=== PATIENT | male | born 1950 | race Caucasian/White ===

== ENCOUNTER 2022-08-11 11:24 | Day surgery (SDC) | payer OTHER ==
[2022-08-08 11:28] VITALS: BMI 38.4
[2022-08-11 11:53] VITALS: RESP 20
[2022-08-11 12:33] VITALS: TEMP 98
[2022-08-11 12:52] VITALS: BP 121/65; PULSE 85
== END 2022-08-11 13:21 | disposition home or self-care (01) ==
LOC: FASU-ENDO 11:24
PROVIDERS: ATTEND Internal Medicine Gastroenterology
PROC: 0DBH8ZX Excision of Cecum, Via Natural or Artificial Opening Endoscopic, Diagnostic (ICD-10-PCS; principal; 2022-08-11 12:05)
DX: Z12.11 Encounter for screening for malignant neoplasm of colon (principal); D12.0 Benign neoplasm of cecum; K57.30 Diverticulosis of large intestine without perforation or abscess without bleeding
CPT/HCPCS: 82962; 88305-TC

== ENCOUNTER 2024-03-28 03:50 | Emergency (ER) | payer OTHER ==
[2024-03-28 04:00] VITALS: BMI 38.0
[2024-03-28] MEDS: SODIUM CHLORIDE 0.9% 500 ML INFUS.BAG IV ONE (05:36)
[2024-03-28] MEDS ORDERED: DIPHTH,PERTUSS(ACELL),TET 0.5 ML DISP.SYRIN IM ONE (05:42)
[2024-03-28] MEDS ORDERED: BACITRACIN ZINC 15 GM TUBE TOPICAL OINTMENT ONE (05:44)
[2024-03-28] MEDS: BACITRACIN ZINC 15 GM TUBE TOPICAL OINTMENT TP ONE (05:48)
[2024-03-28 05:49] LABS: INR 1.38 (0.83-1.09); PROTHROMBIN TIME (PATIENT) 15.7 SEC (9.7-13.0)
[2024-03-28] MEDS: DIPHTH,PERTUSS(ACELL),TET 0.5 ML DISP.SYRIN IM ONE (05:49)
[2024-03-28 05:52] LABS: ACTIVATED PTT 34.1 SECONDS (25.2-36.5)
[2024-03-28 06:01] LABS: POTASSIUM 5.1 mmol/L (3.5-5.1)
[2024-03-28 06:02] LABS: ALBUMIN 3.2 g/dl (3.4-5.0); CALCIUM 8.5 mg/dL (8.5-10.1)
[2024-03-28 06:03] LABS: BLOOD UREA NITROGEN 80.5 mg/dL (7-18)
[2024-03-28 06:06] LABS: CREATININE 2.5 mg/dL (0.55-1.3)
[2024-03-28 06:07] LABS: BILIRUBIN,TOTAL 0.6 mg/dL (0.2-1); TOT PROT 6.4 g/dl (6.4-8.2)
[2024-03-28 07:23] LABS: BASO % 0.6 % (0-2.0); EOS % 2.3 % (0-4.5); HEMATOCRIT 34.2 % (35.4-49); HEMOGLOBIN 11.2 GM/dL (11.7-16.9); LYMPH % 9.1 % (8-40); MCH 28.1 pg (25.7-33.7); MCHC 32.7 g/dl (32.0-35.9); MEAN CELL VOLUME 85.9 fl (80-96); MEAN PLT VOLUME 8.3 fl (7.5-11.1); MONO % 4.1 % (3.8-10.2); NEUT % 83.9 % (42.8-82.8); PLATELET COUNT 255 10^3/uL (134-434); RBC 3.98 M/mm3 (4.00-5.60); RDW 17.4 % (11.9-15.9); WHITE BLOOD COUNT 12.3 K/mm3 (4.0-10.0)
[2024-03-28 07:34] VITALS: PULSE 82; RESP 20
[2024-03-28 08:05] VITALS: BP 108/69; TEMP 97.4
== END 2024-03-28 08:17 | disposition home or self-care (01) ==
LOC: JER 03:50
PROC: 3E0234Z Introduction of Serum, Toxoid and Vaccine into Muscle, Percutaneous Approach (ICD-10-PCS; principal; 2024-03-28)
DX: S91.011A Laceration without foreign body, right ankle, initial encounter (principal); W26.0XXA Contact with knife, initial encounter; Z23 Encounter for immunization
CPT/HCPCS: 36415; 80053; 85025; 85610; 85730; 86850; 86900; 86901; 90471; 90715; 93005; 93010; 99284-25

== ENCOUNTER 2024-03-29 17:29 | Observation (INO) | payer OTHER ==
[2024-03-29] MEDS ORDERED: MAGNESIUM SULFATE IN WATER 2 GM/50 ML IVPB IVPB ONE (18:02)
[2024-03-29] MEDS: MAGNESIUM SULFATE IN WATER 2 GM/50 ML IVPB IVPB ONE (18:20)
[2024-03-29] MEDS: SODIUM CHLORIDE 0.9% 500 ML INFUS.BAG IV ONE ×2 (18:20→23:04)
[2024-03-29 18:34] LABS: BASO % 1.2 % (0-2.0); EOS % 1.8 % (0-4.5); HEMATOCRIT 30.8 % (35.4-49); HEMOGLOBIN 9.8 GM/dL (11.7-16.9); LYMPH % 12.3 % (8-40); MCH 27.8 pg (25.7-33.7); MCHC 31.9 g/dl (32.0-35.9); MEAN PLT VOLUME 7.8 fl (7.5-11.1); MONO % 7.8 % (3.8-10.2); NEUT % 76.9 % (42.8-82.8); PLATELET COUNT 210 10^3/uL (134-434); RBC 3.54 M/mm3 (4.00-5.60); RDW 17.3 % (11.9-15.9); WHITE BLOOD COUNT 11.4 K/mm3 (4.0-10.0)
[2024-03-29 18:41] LABS: INR 1.28 (0.83-1.09); PROTHROMBIN TIME (PATIENT) 14.6 SEC (9.7-13.0)
[2024-03-29 19:45] LABS: POTASSIUM 4.7 mmol/L (3.5-5.1)
[2024-03-29 19:48] LABS: ALBUMIN 3.5 g/dl (3.4-5.0); BLOOD UREA NITROGEN 64.5 mg/dL (7-18); CALCIUM 8.7 mg/dL (8.5-10.1)
[2024-03-29 19:51] LABS: CREATININE 1.9 mg/dL (0.55-1.3)
[2024-03-29 19:53] LABS: BILIRUBIN,TOTAL 0.6 mg/dL (0.2-1); TOT PROT 6.6 g/dl (6.4-8.2)
[2024-03-29 19:56] LABS: N-TERMINAL BNP 5937.8 pg/ml (5-125)
[2024-03-29 20:17] LABS: PH,URINE 5.5 (5.0-8.0); URINE APPEARANCE CLEAR; URINE BILIRUBIN NEGATIVE (NEGATIVE); URINE COLOR YELLOW; URINE GLUCOSE (UA) TRACE (NEGATIVE); URINE KETONE NEGATIVE (NEGATIVE); URINE LEUK ESTERASE NEGATIVE (NEGATIVE); URINE NITRITE NEGATIVE (NEGATIVE); URINE PROTEIN NEGATIVE (NEGATIVE); URINE UROBILINOGEN 0.2 mg/dL (0.2-1.0)
[2024-03-29 21:34] LABS: BASO % 1.2 % (0-2.0); EOS % 2.4 % (0-4.5); HEMATOCRIT 29.1 % (35.4-49); HEMOGLOBIN 9.6 GM/dL (11.7-16.9); LYMPH % 13.3 % (8-40); MCH 28.7 pg (25.7-33.7); MCHC 33.1 g/dl (32.0-35.9); MEAN CELL VOLUME 86.5 fl (80-96); MONO % 6.9 % (3.8-10.2); NEUT % 76.2 % (42.8-82.8); PLATELET COUNT 207 10^3/uL (134-434); RBC 3.36 M/mm3 (4.00-5.60); RDW 17.6 % (11.9-15.9); WHITE BLOOD COUNT 9.8 K/mm3 (4.0-10.0)
[2024-03-29 21:54] LABS: HIV INTERPRETATION NEGATIVE (NEGATIVE)
[2024-03-30 01:59] VITALS: BMI 40.1
[2024-03-30] MEDS: LEVOTHYROXINE NA 50 MCG TABLET (FP) PO SCH (06:12)
[2024-03-30] MEDS: INSULIN ASPART SLIDING SCALE (NOVOLOG) 1 VIAL SQ SCH (06:16)
[2024-03-30 07:47] LABS: BASO % 1.4 % (0-2.0); EOS % 3.4 % (0-4.5); HEMATOCRIT 28.8 % (35.4-49); HEMOGLOBIN 9.4 GM/dL (11.7-16.9); MCH 28.4 pg (25.7-33.7); MCHC 32.7 g/dl (32.0-35.9); MEAN CELL VOLUME 86.9 fl (80-96); MEAN PLT VOLUME 7.9 fl (7.5-11.1); MONO % 10.1 % (3.8-10.2); NEUT % 65.1 % (42.8-82.8); PLATELET COUNT 196 10^3/uL (134-434); RBC 3.31 M/mm3 (4.00-5.60); RDW 17.1 % (11.9-15.9); WHITE BLOOD COUNT 8.6 K/mm3 (4.0-10.0)
[2024-03-30 07:51] LABS: INR 1.19 (0.83-1.09); PROTHROMBIN TIME (PATIENT) 13.6 SEC (9.7-13.0)
[2024-03-30 08:08] LABS: POTASSIUM 4.3 mmol/L (3.5-5.1)
[2024-03-30 08:10] LABS: ALBUMIN 3.2 g/dl (3.4-5.0); BLOOD UREA NITROGEN 58.3 mg/dL (7-18); CALCIUM 8.5 mg/dL (8.5-10.1); MAGNESIUM 2.7 mg/dL (1.8-2.4)
[2024-03-30 08:14] LABS: PHOSPHOROUS 3.8 mg/dL (2.5-4.9)
[2024-03-30 08:15] LABS: BILIRUBIN,TOTAL 0.6 mg/dL (0.2-1); CREATININE 1.6 mg/dL (0.55-1.3); TOT PROT 6.1 g/dl (6.4-8.2)
[2024-03-30] MEDS: APIXABAN 5 MG TABLET PO SCH (10:34)
[2024-03-30] MEDS: ASPIRIN COATED 81 MG TABLET.EC PO SCH (10:34)
[2024-03-30] MEDS: SODIUM CHLORIDE 1,000 ML IV SCH (11:05)
[2024-03-30] MEDS: ROSUVASTATIN CA 20 MG TABLET PO SCH (21:08)
[2024-03-31 07:10] LABS: HEMATOCRIT 30.1 % (35.4-49); HEMOGLOBIN 9.8 GM/dL (11.7-16.9); MCH 28.5 pg (25.7-33.7); MCHC 32.4 g/dl (32.0-35.9); MEAN PLT VOLUME 7.9 fl (7.5-11.1); PLATELET COUNT 193 10^3/uL (134-434); RBC 3.42 M/mm3 (4.00-5.60); RDW 17.5 % (11.9-15.9); WHITE BLOOD COUNT 9.6 K/mm3 (4.0-10.0)
[2024-03-31 07:25] LABS: POTASSIUM 4.7 mmol/L (3.5-5.1)
[2024-03-31 07:31] LABS: ALBUMIN 3.4 g/dl (3.4-5.0); BLOOD UREA NITROGEN 44.4 mg/dL (7-18); CALCIUM 8.7 mg/dL (8.5-10.1)
[2024-03-31 07:34] LABS: CREATININE 1.4 mg/dL (0.55-1.3)
[2024-03-31 07:36] LABS: BILIRUBIN,TOTAL 0.6 mg/dL (0.2-1); TOT PROT 6.6 g/dl (6.4-8.2)
[2024-03-31] MEDS: metoPROLOL SUCCINATE 25 MG TAB.SR.24H (FP) PO SCH (09:05)
[2024-03-31] MEDS: predniSONE 20 MG TABLET (UD) PO ONE (09:05)
[2024-03-31] MEDS: SACUBITRIL/VALSARTAN 24 MG-26 MG TABLET PO SCH (09:05)
[2024-03-31 13:47] VITALS: BP 110/68; PULSE 109; RESP 19; TEMP 97.9
[2024-04-01] MEDS ORDERED: SPIRONOLACTONE 25 MG TABLET PO SCH (10:00)
== END 2024-03-31 14:12 | disposition home or self-care (01) ==
LOC: JER 17:29 → JERBED 20:34 → J4W 03-30 01:40
PROVIDERS: ADMIT Internal Medicine; ATTEND Internal Medicine
PROC: 3E03329 Introduction of Other Anti-infective into Peripheral Vein, Percutaneous Approach (ICD-10-PCS; principal; 2024-03-29)
PROC: 3E0337Z Introduction of Electrolytic and Water Balance Substance into Peripheral Vein, Percutaneous Approach (ICD-10-PCS; 2024-03-29)
DX: I50.20 Unspecified systolic (congestive) heart failure (principal); N17.9 Acute kidney failure, unspecified; W18.39XA Other fall on same level, initial encounter; N18.9 Chronic kidney disease, unspecified; E11.22 Type 2 diabetes mellitus with diabetic chronic kidney disease; I12.9 Hypertensive chronic kidney disease with stage 1 through stage 4 chronic kidney disease, or unspecified chronic kidney disease; Y93.89 Activity, other specified; E78.5 Hyperlipidemia, unspecified; E03.9 Hypothyroidism, unspecified; Y92.89 Other specified places as the place of occurrence of the external cause; I95.1 Orthostatic hypotension; R60.0 Localized edema; L97.429 Non-pressure chronic ulcer of left heel and midfoot with unspecified severity; E66.9 Obesity, unspecified
CPT/HCPCS: 36415; 71045-TC-FY; 73630-TC-RT-FY; 74176-TC; 76604; 76705-TC; 76775-TC; 80053; 81003; 82272; 82550; 82728; 82962; 83540; 83550; 83605; 83735; 83880; 84100; 84484; 84550; 85025; 85027; 85045; 85610; 86803; 86850; 86900; 86901; 87086; 87389; 93005; 93010; 93306-TC; 93308; 96361; 96365; 97116-GP; 97161-GP; 99285-25; G0378